=== PATIENT | male | born 1970 | race Caucasian/White ===

== ENCOUNTER → 2019-08-23 | Outpatient (CLI) | payer OTHER, SELFPAY ==
[2019-08-23 12:04] VITALS: BMI 32.2
[2019-08-23 15:21] LABS: Bacteria 0 SEEN /hpf (None Seen); Mucous, Urine 0 SEEN /hpf (<or=2+); Red Blood Cells-Urine 0 SEEN /hpf (0-5); White Blood Cells 0 SEEN /hpf (0-5)
[2019-08-23 15:29] LABS: Color, Urine Yellow (Yellow); Glucose, Dipstick Normal (Normal); Ketone-Dipstick Negative (Negative); Leukocyte Esterase-Dipstick Negative /ul (Negative); Nitrite-Dipstick Negative (Negative); Occult Blood-Urine Negative /ul (Negative); Protein-Dipstick Negative (Negative); Specific Gravity, Urine 1.005 (1.002-1.030); Urine Bilirubin Dipstick Negative (Negative); Urine Clarity Sl. Cloudy (Clear); Urine Urobilinogen Normal (Normal)
[2019-08-23 16:32] LABS: Squamous Epithelial Cells - UA 0-5 SEEN /hpf (0-5)
== END | disposition home or self-care (01) ==
LOC: LABSPEC 14:58
PROVIDERS: Referring Provider Physician Assistant; Visit Provider Physician Assistant
DX: R35.0 Frequency of micturition (principal)
CPT/HCPCS: 81001; 87086

== ENCOUNTER 2019-10-20 00:07 | Emergency (ER) | payer OTHER, SELFPAY ==
[2019-08-23 12:04] VITALS: BMI 32.2
[2019-10-20 00:08] VITALS: BP 84/43; PULSE 58; RESP 20; TEMP 36.9; O2SAT 96; BMI 32.9
--- NOTE | 2019-10-20 00:11 | RAD_ITS ---
HISTORY: Fell, deformity to 3rd finger ADDITIONAL HISTORY: None provided. TECHNIQUE: Left hand 3 views Number of images including paperwork: 4 COMPARISON: None FINDINGS: BONES: No definite acute fracture. JOINTS: Dorsal dislocation of the left third finger proximal interphalangeal joint is present with hyperextension. SOFT TISSUES: No distinct foreign body. RAD/Hand Min 3 Views IMPRESSION: Left third finger proximal interphalangeal joint dislocation. at 0109 Reported and signed by: Karishma Navarrete MD Electronically Signed: Karishma Navarrete MD at 1:09 EST Tel , Service support ,
[2019-10-20 00:17] VITALS: BP 101/63; PULSE 66; RESP 20; O2SAT 97
[2019-10-20] MEDS: Ondansetron ODT 4 MG Tablet 8 MG PO (00:17)
[2019-10-20 01:47] VITALS: BP 131/79; PULSE 84; RESP 18; O2SAT 99
[2019-10-20] MEDS: Bupivacaine Mpf 0.5% 30 ML VIAL INFILT (02:05)
--- NOTE | 2019-10-20 03:25 | RAD_ITS ---
HISTORY: post reduction 3rd finger ADDITIONAL HISTORY: None provided. TECHNIQUE: Left third finger 3 views Number of images including paperwork: 4 COMPARISON: None FINDINGS: BONES: Faint avulsion fracture fragments likely present volarly. JOINTS: Status post reduction of left third finger PIP joint dislocation. SOFT TISSUES: No distinct foreign body. RAD/Finger(s) Min 2 Views IMPRESSION: Status post reduction of left third finger PIP joint dislocation with probable avulsion fracture fragments.. at 0438 Reported and signed by: Karishma Navarrete MD Electronically Signed: Karishma Navarrete MD at 4:38 EST Tel , Service support ,
--- NOTE | 2019-10-20 03:26 | ED.DCSUM_ITS ---
History of Present Illness Chief Complaint: Fall Informant: Patient, Significant Other Occurred: Today - JPTA Mechanism/Context: Fall, Trip Context: Sudden Onset - tripped and fell Timing: Continuous Quality of Pain: Aching Location: left middle finger Current Severity: Moderate Maximum Severity: Severe Worsened by: moving Relieved by: leaving alone Associated Symptoms: Parasthesia, Loss of Funtion - left middle finger Narrative: RHD. Patient states he was out to dinner with his jayce and had some alcohol, he went to get the car but tripped on a curb, falling and trying to catch himself with outstretched left upper extremity and caught some fingers wrong and thinks he broke 1 associated with a laceration. He does not think he has any other injuries. Tetanus Immunization: Unknown Past Medical History - Allergies and Home Meds Allergies/Adverse Reactions: Allergies No Known Allergies Allergy (Verified 10/20/19 00:13) Past Medical History: None Surgical History: no surgical history Lives: Spouse/ Significant Other Smoking Status: Never smoker Drugs: None Review of Systems Eyes: Denies: Visual changes - bilaterally, Diplopia Cardiovascular: Denies: Chest pain Gastrointestinal: Denies: Abdominal pain, Nausea, Vomiting Musculoskeletal: Reports: Extremity Pain Skin: Reports: Abrasions, Wounds Neurological: Reports: Parasthesia. Denies: Headache, Weakness Physical Exam Vital Signs/Narrative: Vital Signs Temp Pulse Resp BP Pulse Ox 10/20/19 01:47 84 18 131/79 H 99 10/20/19 00:17 66 20 H 101/63 97 10/20/19 00:08 98.5 F 58 L 20 H 84/43 L 96 General: Well nourished, Well developed Head: Normocephalic, Atraumatic Eyes: Perrl, EOMI ENT: No Trauma, Moist Mucous Membranes, - - TMs and EACs nml, no HT. No raccoon eyes, julian sign. dried blood on right temporal area, nontender, no depression/crepitance. no facial trauma/tenderness. Neck: Nontender, Full ROM Extremeties: There is a major deformity at the left middle finger PIP joint, it is firmly stuck at a approximately 90 degree angle, in hyperextension. On the volar side, at the crease of the PIPJ, there is a 2.5 cm laceration and both the FDP and FDS tendons are bulging out of the laceration and appear to be intact. All other fingers have intact FDP and FDS tendons, isolated independent of each other, as well as extensor function. There is a linear abrasion at the palmar crease at the base of the thenar eminence. There is some road rash/gravel abrasions at the base of the right palm without any other significant injury to the extremities. Skin: Cyanosis - left middle finger distal to PIPJ, Trauma - lacerations to left middle and index fingers, volar only; 2.5cm middle finger at PIPJ, 1.5cm index finger volar at DIPJ. both down to tendons, which are visible and intact without apparent injury/laceration. Neurological: Alert, Oriented x3, Cranial nerves II-XII grossly intact, Normal Strength, Normal Gait, Parasthesia - left middle finger only Psychological: Normal affect, Normal Mood Diagnostic/Tx/Re-eval Clinical Impression(s) from Imaging Studies Hand X-Ray 10/20/19 00:11 IMPRESSION: Left third finger proximal interphalangeal joint dislocation. at 0109 Reported and signed by: Karishma Navarrete MD Electronically Signed: Karishma Navarrete MD at 1:09 EST Tel , Service support , Finger X-Ray 10/20/19 03:25 IMPRESSION: Status post reduction of left third finger PIP joint dislocation with probable avulsion fracture fragments.. at 0438 Reported and signed by: Karishma Navarrete MD Electronically Signed: Karishma Navarrete MD at 4:38 EST Tel , Service support , - Medical Decision Making After performing digital block, since he had decreased perfusion distally, I gently tried to manipulate the deformity, which was stuck fairly firmly in its deformed position, indicative of a dislocation rather than a fracture, which was confirmed by the x-ray. I was able to reduce the dislocation fairly easily, which resulted in immediate reperfusion distally and resolution of the cyanosis at his finger pad. This resulted in some transient ischemic pain in his finger, his finger was definitely left like this for less than 1.5 hours. This was followed by laceration repair under good anesthesia. His index finger laceration was repaired to. It was down to tendon which was visible and did not appear to be injured. He was placed on prophylactic antibiotics, splinted, and discharged with a prescription for Sargeant to use as needed. Of note, the patient had a ring on his ring finger of the same hand. The proximal phalanx and PIPJ appear to be contused, and mildly swollen, but if I pushed his ring down toward his MCPJ, it was loose enough to leave alone. However, after performing the reduction in repairing his lacerations, his finger became more swollen and started hurting more, and the ring would not easily move. It was titanium, and we do not have tools to cut a titanium ring here off of a swollen finger safely. Therefore we iced his hand for a while and had him elevated for another 30 or 45 minutes. On reevaluation this helped significantly and he was able to remove the ring painlessly. Procedures - Lacerations left middle finger Length: 2.5 cm Depth: Tendon Shape: Linear - but jagged edges/macerated Prep: Sterile Conditions, Chlorhexadine Laceration repair: Digital block - w/ 9cc 0.5% bupivacaine, plain, Irrigated, Skin sutures Irrigated (ml): 120 Number of Sutures/Bri: 8 Suture Information: Ethilon, Simple, 5-0 left index finger Length: 1.5 cm Depth: Tendon Shape: Linear Prep: Sterile Conditions, Chlorhexadine Laceration repair: Irrigated, Local - 0.5% bupivacaine, plain Irrigated (ml): 60 Number of Sutures/Bri: 4 Suture Information: Ethilon, Simple, 5-0 Procedure(s): Closed reduction left middle finger dislocation at PIPJ. After digital block, traction and manual manipulation resulted in easy reduction of the PIPJ. Afterwards, I was able to verify that his FDP and FDS were independently intact with regards to flexing his finger at both joints. He was also able to extend. Reduction verified by repeat XR with probably small avulsion fractures. Finger splinting. Placed and AlumaFoam finger splint in neutral mild flexion position. Neurovascularly intact distally after placement, which was performed by nursing and supervised/verified by myself. ED Disposition - Plan for ED Patient: Disposition: Home or Assisted Living Diagnosis: Open dislocation of finger of left hand, Laceration of left index finger, Laceration of left middle finger Instructions: Dislocated Finger, LACERATION, Extrem (Suture, Staple or Tape) Prescriptions: Cefadroxil Hydrate [Duricef] 500 mg PO BID 5 Days #10 cap Transmission Status: Received by [id number] Hydrocodone Bitart/Apap 5-325 [Sargeant 5MG-325MG] 1 tab PO Q4H PRN PRN 2 Days #10 tab PRN Reason: Pain Transmission Status: Received by [id number] Referrals: Mei Burt DO [STAFF PHYSICIAN] - As soon as possible (after the weekend -- call for appt) Additional Instructions: sutures should be evaluated for removal in 7-14 days.
[2019-10-20] MEDS: HYDROcodone Bitartrate/Apap 5/325 Tablet PO (05:22)
[2019-10-20 05:24] VITALS: BP 139/79; PULSE 84; RESP 18; O2SAT 99
--- NOTE | 2019-10-20 05:25 | ED.RN ---
THIS NURSE REVIEWED D/C INSTRUCTIONS WITH PT AND . PT VERBALIZED UNDERSTANDING OF INSTRUCTIONS. PT DENIES FURTHER NEEDS OR QUESTIONS AT THIS TIME. PT AMBULATES FROM ROOM ON OWN WITHOUT ASSISTANCE FROM STAFF
== END 2019-10-20 05:26 | disposition home or self-care (01) ==
PROVIDERS: Emergency Provider Emergency Medicine; Family Provider Family Medicine; PCP Family Medicine
DX: M79.645 Pain in left finger(s) (principal); S63.283A Dislocation of proximal interphalangeal joint of left middle finger, initial encounter; S61.213A Laceration without foreign body of left middle finger without damage to nail, initial encounter; S61.211A Laceration without foreign body of left index finger without damage to nail, initial encounter; W01.0XXA Fall on same level from slipping, tripping and stumbling without subsequent striking against object, initial encounter
CPT/HCPCS: 12002; 73130; 73140; 99283

== ENCOUNTER 2019-12-17 09:00 | Outpatient (RCR) | payer OTHER, SELFPAY ==
[2019-10-23 14:21] VITALS: BMI 32.9
[2019-10-29 12:00] VITALS: BMI 32.9
--- NOTE | 2019-10-29 15:59 | HP.OTEVAL_ITS ---
Patient's Visit Information ELIU KENDALL is a 49 year old M, referred to Occupational Therapy by Mei Burt DO, with a diagnosis of Middle finger dislocation L hand. Date of Evaluation: 10/29/19 Occupational Therapist: Swapna Brooks, OTR/L - Subjective Subjective: Eliu Machado arrived s/p avulsion fracture to L MF at PIP. He noted injury occured 10/20/19. He explained it resulted as fall but acholoh was not involeved. Noted that he did not lacerate or domage tendon or nerve but all of hand at MCP were hyperextended. 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 - ADLs Dressing: Button shirt, Socks, Shoes Fasteners: Tie shoes, Buttons Eating: Bring food to mouth, Use silverware Grooming: Trim nails Kitchen: Peel fruits & vegetables, Open jars, Open bottle caps, Pour from pitcher, Lift saucepan Yard: Use shovel Miscellaneous: Take things out of wallet, Use computer keyboard, Open doors/Including car door, Operate spray bottle - Pain L MF at PIP 0 Pain Intensity Range: 0, 4 - Objective Objective/Observation: edema t.o PIP of MF and RF; limited ROM and strenght of L hand. - ROM MP: R WFL, L 2nd 0-71, 3rd 0-84, 4th 0-73, 5th 0-76 PIP: R WFL, L 2nd 0-81, L 5-30, 3rd 5- 30, 4th 7-56, 5th 0-74 - Strength Estimator And Drafter Supervisor: R 91, L 10 Lateral Pinch: R 21, L 19 Tripod Pinch: R 19 L unable Tip-to-Tip Pinch: R 11, L 3 - Edema Proximal Phalanx: 2nd R 7.7, L 7.7; 3rd R 7.7 L 8.9, 4th R 7.2, L 7.7, 5th R 6.8, L 7.1 cm - Sensation Sensation Comments: denies numbness and tingling - In-Hand Manipulation Finger to Palm Translation: Normal - Right, Moderate - Left Palm to Finger Translation: Normal - Right, Moderate - Left Shift: Normal - Right, Normal - Left Rotation: Normal - Right, Normal - Left - Quick DASH-Disab of Arm,Shoulder& Hand Quick DASH Score: 28.3325 - Goals Goal:: Carter to increased L spray i painter strength to at least 60% of R hand spray i painter strength to promote spray i painter and ability to return to PLOF by d/c. Goal:: Carter to increased PIP flexion of L hand to that similar to R nonaffected hand to promote increased flexion and ability to complete manipulation of L hand for ADL/IADls by d/c. Goal:: Carter to have no more than 1/10 pain in L MF PIP with repetitive movement tasks of L hand 4/5 trials 80% of the time by d/c. Goal:: Carter to compleet wound and scar care to L MF to decrease risk of infection 4/ 5 trials 80% of the time to promote returning to PLOF by d/c. Goal:: Carter to complete joint protection and stability exercsies L MF PIP 4/5 trials to promote joint protection to retrun to PLOF by d/c. Goal:: Carter to be (I) to complete HEP to promote ROM and strength 4/5 trials 80% of the time to return to PLOF and promote mobiolity of L hand by d/c. - Rehabilitation General Assessment: Eliu 'Carter' is s/p middle finger avulsion fracture with dislocation at PIP of left hand. Middle finger is significantly limited and protection gutter splint made. He will need to complete protection splint and start to progress to tera taping within next couple of weeks with regards to the healing of volar wound. Carter exhibits decreased strength and ROM of L hand. He is to start HEp provided and further ROM, strength,and static progressive splint to be initated as needed. He is significantly limited in ROM and strength of PIP and skilled OT warranted to promote returning to PLOF. Rehabilitation Potential: Good - Anticipated Interventions Anticipated Interventions: A/AAROM/PROM, Strengthening, Edema Control, Scar Care, Wound Care, Modalities, Orthoses, Joint Protection/Energy Conservation, Ergonomic Education, Dynamic Sitting Balance, Fine Motor Coord/Rickey, Neuro Reeducation, ADL Training, Education re assistive Equipment, Caregiver Training, Home Program Other Interventions: static progressive splint as needed. - Visit Plan Frequency: 2x /Week Duration: 4-6 Weeks General Plan: Eliu will completed weekly OT to promote increased ROM, strength,a dn joint mobility and protection of L hand and MF. He is to start ROM exercsies for HEP and further splinting to be initated to promote ROM as needed. TEXT: Thank you for the opportunity to evaluate your patient. For Medicare and Medicare HMO plans, please review the plan of care and approve it. It will need to be FAXED BACK to us at [phone] for Medicare purposes. Please let me know if there are questions or concerns regarding this plan of care. Physician Signat ure: Date:
--- NOTE | 2019-12-07 11:11 | HP.OTREVAL ---
Mei Burt, DO, It has been my pleasure to treat ELIU KENDALL over the last 8 visits for Middle finger dislocation L hand. Please see the progress note below for an update on the occupational therapy plan of care! Subjective: Arrived and noted things going well. Some soreness in L MF. HE noted some increase soreness in palm from working out. HAs recieved flexion splint and been using. HE feels about 50% back to PLOF. Objective/Function: Reassessment completed on this date of 12/07/19 and results as follows: ROM: MF. - MCP 0-87. - PIP 8-67. - DIP 0-29. RF. - MCP 0-84. - PIP 0-65. - DIP 0-25. Strength: - clinical social worker 99, L 45. - lateral R 32, L 28. - tripod R 25, L 16. - pincer R 16, L 11 Plan Frequency: 1-2x /Week Duration: 3 Weeks Visits in this POC: 14 Plan: continue POC for 1-2x weekly appointment for the next 3 weeks. He has progressed with ROM and strength. Further skilled OT intervention needed to promote increased ROM and strength of R UE for ADL/IADls. Goals - Goals Goal:: Carter to increased L clinical social worker strength to at least 60% of R hand clinical social worker strength to promote clinical social worker and ability to return to PLOF by d/c. Goal:: Carter to increased PIP flexion of L hand to that similar to R nonaffected hand to promote increased flexion and ability to complete manipulation of L hand for ADL/IADls by d/c. Goal:: Carter to have no more than 1/10 pain in L MF PIP with repetitive movement tasks of L hand 4/5 trials 80% of the time by d/c. Goal:: Carter to compleet wound and scar care to L MF to decrease risk of infection 4/ 5 trials 80% of the time to promote returning to PLOF by d/c. Goal:: Carter to complete joint protection and stability exercsies L MF PIP 4/5 trials to promote joint protection to retrun to PLOF by d/c. Goal:: Carter to be (I) to complete HEP to promote ROM and strength 4/5 trials 80% of the time to return to PLOF and promote mobiolity of L hand by d/c. Anticipated Interventions Anticipated Interventions: A/AAROM/PROM, Strengthening, Edema Control, Scar Care, Wound Care, Modalities, Orthoses, Joint Protection/Energy Conservation, Ergonomic Education, Dynamic Sitting Balance, Fine Motor Coord/Rickey, Neuro Reeducation, ADL Training, Education re assistive Equipment, Caregiver Training, Home Program Other Interventions: static progressive splint as needed. Please do not hesitate to contact me at [phone] by phone or if you have questions or concerns regarding this new plan of care! Sincerely, Swapna Brooks, OTR/L
--- NOTE | 2020-01-25 10:25 | HP.OT.NRP ---
HP - Discharge Summary - Patient Information ELIU KENDALL was seen in my office for initial evaluation on 10/29/19. The following Plan of Care was established for this patient: Initial Frequency: 1-2x /Week Initial Duration: 3 Weeks Plan: continue POC. Continue addressing strength and ROM. - Anticipated Interventions Anticipated Interventions: A/AAROM/PROM, Strengthening, Edema Control, Scar Care, Wound Care, Modalities, Orthoses, Joint Protection/Energy Conservation, Ergonomic Education, Dynamic Sitting Balance, Fine Motor Coord/Rickey, Neuro Reeducation, ADL Training, Education re assistive Equipment, Caregiver Training, Home Program Other Interventions: static progressive splint as needed. This patient was last seen in our office 12/17/19. Pertinent comments regarding their Occupational therapy will appear below: Not seen in clinic since 12/17/19. He was doing well with HEP and use of splints to promote increased finger flexion. Called for follow-up and message left. Chart will be discharged. At this point I will be discontinuing this patient from occupational therapy. I would be happy to see this patient again in the future if found appropriate by the physician. Thank you! Swapna Brooks, OTR/L
== END 2019-12-17 19:00 | disposition home or self-care (01) ==
LOC: OT 09:00
PROVIDERS: Family Provider Family Medicine; PCP Family Medicine; Referring Provider Orthopaedic Surgery; Visit Provider Orthopaedic Surgery
DX: S63.253 Unspecified dislocation of left middle finger (principal)
CPT/HCPCS: 97110; 97140; 97166; 97168; 97530; 97760

== ENCOUNTER → 2020-10-08 09:55 | Outpatient (CLI) | payer OTHER, SELFPAY ==
[2019-10-29 12:00] VITALS: BMI 32.9
== END ==
PROVIDERS: PCP Family Medicine; Referring Provider Family Medicine; Visit Provider Family Medicine
DX: Z20.828 Contact with and (suspected) exposure to other viral communicable diseases (principal)
CPT/HCPCS: 87635; C9803; U0003